=== PATIENT | female | born 1985 | race Two or more races ===

== ENCOUNTER 2018-06-10 02:40 | Inpatient (IN) | payer OTHER ==
[2018-06-10] MEDS ORDERED: METHYLERGONOVINE MALEATE 0.2 MG/1 ML AMP IM PRN (05:16)
[2018-06-10] MEDS ORDERED: BENZOCAINE 28 GM HEMORRHOIDAL OINTMENT TP PRN (05:16)
[2018-06-10] MEDS ORDERED: BENZOCAINE 20% 57 GM BOTTLE TP PRN (05:16)
[2018-06-10] MEDS ORDERED: BISACODYL 10 MG SUPP.RECT RC PRN (05:16)
[2018-06-10] MEDS ORDERED: WITCH HAZEL 50% (TUCKS) 40 PAD/JAR PAD TP PRN (05:16)
--- NOTE | 2018-06-10 05:16 | HP ---
Admitting History and Physical - Admission Chief Complaint: labor pains History of Present Illness: 32 y/o at term comes in full dilated and labor. She was evaluated earlier and returns in labor. 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[employer]: No: Alzheimer's, CVA, Dementia, Migraine, Multiple Sclerosis, Peripheral Neuropathy, Parkinson's, Seizure, Syncope, TIA, Vertigo, Other Cardiovascular: No: AFIB, Aneurysm, Aortic Insufficiency, Aortic Stenosis, CAD, CHF, Deep Vein Thrombosis, HTN, Hyperlipdemia, [place], Mitral Insufficiency, Mitral Stenosis, Murmur, Pulmonary Hypertension, Other Pulmonary: No: Asthma, Bronchitis, Cancer, COPD, O2 Dependent, Pneumonia, Previously Intubated, Pulmonary Embolus, Pulmonary Fibrosis, Sleep Apnea, Other Gastrointestinal: No: Ascites, Cancer, Constipation, Crohn's Disease, Diverticulitis, Diverticulosis, Esophageal Varices, Gastritis, GERD, GI Bleed, Hemorrhoids, Hiatal Hernia, Inflamatory Bowel Disease, Irritable Bowel Disease, Pancreatitis, Peptic Ulcer Disease, Ulcerative Colitis, Other Hepatobiliary: No: Cirrhosis, Cholelithiasis, Cholecystitis, Choledocholithiasis , Hepatitis A, Hepatitis B, Hepatitis C, Other Renal/: No: Renal Failure, Renal Inusuff, BPH, Cancer, Hematuria, Hemodialysis , Neurogenic Bladder, Renal Calculi, UTI, Other Reproductive: No: Ectopic , Endometriosis, Fibroids, PID, Polycystic Ovary Syndrome, Postmenopausal, Other ...: 7 ...Para: 4 Heme/Onc: No: Anemia, B12 Deficiency, Bleeding Disorder, Cancer, Current Chemotherapy, Current Radiation Therapy, Hemochromatosis, Hypercoaguable State, Myeloproliferative Synd, Sickle Cell Disease, Sickle Cell Trait, Thrombocytopenia, Other Infectious Disease: No: AIDS, C-Diff, Herpes Zoster, HIV, MRSA, STD's, Tuberculosis, VREF, Other Psych: No: Addictions, Anxiety, Bipolar, Depression, Panic, Psychosis, Schizophrenia, Other Musculoskeletal: No: Bursitis, Chronic low back pain, Hemiparesis, Hemiplegia, Osteoarthritis, Paraplegia, Other Rheumatology: No: Fibromyalgia, Gout, Lupus, Rheumatoid Arthritis, Sarcoidosis, Vasculitis, Other ENT: No: Allergic Rhinitis, Sinusitis, Other Dermatology: No: Basal Cell, Cellulitis, Eczema, Melanoma, Psoriasis, Squamous Cell, Other - Past Surgical History Past Surgical History: No: None, AAA Repair, AICD, Amputation, Appendectomy, Arthrosocopy, AV Fistula/Graft, Bariatric Surgery, Breast Biopsy, Bypass, CABG, Carotid Endarterectomy, Cataract Removal, Cholecystectomy, Colectomy, Colonoscopy, Colostomy, Craniotomy, , Cystectomy, Hernia Repair, Hysterectomy, Ileal Conduit, Ileosotomy, Joint Replacement, Kidney Transplant, Laminectomy, Liver Transplant, Mastectomy, Nephrectomy, Oopherectomy, Orchiectomy, Permanent Pacemaker, Prostatectomy, Splenectomy, Stent, Thoracotomy , TURP, Tonsillectomy, Tubal Ligation, Upper Endoscopy, Valve Replacement, Vasectomy, Vein Stripping/Ligation - Advance Directives Advance Directives: No: Living Will, Health Care Proxy, DNR, Organ Donor, Tissue Donor, MOLST - Alcohol/Substance Use History of Substance Use: denies: None, Cocaine, Heroin, Marijuana, Prescription , Tranquilizers - Social History Usual Living Arrangement: No: Alone, With Spouse, With Parent, With Significant Other, With Child, Assisted Living, [facility], Other Home Medications - Allergies Allergies/Adverse Reactions: Allergies Allergy/AdvReac Type Severity Reaction Status Date / Time No Known Allergies Allergy Verified 06/02/18 09:04 - Home Medications Home Medications: Ambulatory Orders Pnv No.95/Ferrous Fum/Folic AC [ Formula] 1 each PO DAILY 06/02/18 Review of Systems - Review of Systems Constitutional: reports: No Symptoms Eyes: reports: No Symptoms HENT: reports: No Symptoms Neck: reports: No Symptoms Cardiovascular: reports: No Symptoms Respiratory: reports: No Symptoms Gastrointestinal: reports: No Symptoms Genitourinary: reports: No Symptoms Breasts: reports: No Symptoms Reported Musculoskeletal: reports: No Symptoms Integumentary: reports: No Symptoms Neurological: reports: No Symptoms Endocrine: reports: No Symptoms Hematology/Lymphatic: reports: No Symptoms Physical Examination Vital Signs: Vital Signs Temperature 98.6 F 06/10/18 02:50 Pulse Rate Respiratory Rate 18 06/10/18 02:50 Blood Pressure O2 Sat by Pulse Oximetry (%) Constitutional: Yes: Well Nourished Eyes: Yes: WNL HENT: Yes: WNL Neck: Yes: WNL Cardiovascular: Yes: WNL Respiratory: Yes: WNL Gastrointestinal: Yes: WNL ...Rectal Exam: Yes: WNL Renal/: Yes: WNL Breast(s): Yes: WNL Musculoskeletal: Yes: WNL Extremities: Yes: WNL Integumentary: Yes: WNL Neurological: Yes: WNL, Unresponsive Assessment/Plan aadmit labs expect nsvsd
--- NOTE | 2018-06-10 05:26 | PN ---
Delivery - Delivery Vaginal Delivery: No Problems Type of Anesthesia: None Episiotomy/Laceration: None EBL (cc): 300 Remarks - Remarks Remarks: placenta intact tolerated well
[2018-06-10] MEDS ORDERED: ONDANSETRON 4 MG/2 ML VIAL IM PRN (05:51)
[2018-06-10] MEDS: IBUPROFEN 600 MG TABLET (FP) PO PRN ×5 (05:59→22:00)
[2018-06-10 07:06] VITALS: BMI 28.9
[2018-06-10 08:00] LABS: BASO % 0.2 % (0-2.0); EOS % 0.4 % (0-4.5); HEMOGLOBIN 10.7 GM/dL (10.7-15.3); MCH 33.2 pg (25.7-33.7); MCHC 34.6 g/dl (32.0-36.0); MEAN CELL VOLUME 95.8 fl (80-96); MEAN PLT VOLUME 7.8 fl (7.5-11.1); MONO % 3.7 % (3.8-10.2); NEUT % 83.7 % (42.8-82.8); PLATELET COUNT 289 K/MM3 (134-434); RBC 3.23 M/mm3 (3.60-5.2); RDW 13.8 % (11.6-15.6); WHITE BLOOD COUNT 9.4 K/mm3 (4.0-10.0)
[2018-06-10 08:08] LABS: ANION GAP 7 MMOL/L (8-16); BLOOD UREA NITROGEN 7 mg/dL (7-18); CALCIUM 8.6 mg/dL (8.5-10.1); CHLORIDE 108 mmol/L (98-107); CO2 21 mmol/L (21-32); CREATININE 0.6 mg/dL (0.55-1.3); GLUCOSE,RANDOM 75 mg/dL (74-106); POTASSIUM 4.1 mmol/L (3.5-5.1); SODIUM 137 mmol/L (136-145)
[2018-06-10] MEDS: ACETAMINOPHEN 325 MG TABLET (FP) PO PRN ×4 (09:34→21:59)
[2018-06-11] MEDS: ACETAMINOPHEN 325 MG TABLET (FP) PO PRN ×4 (02:04→19:31)
[2018-06-11] MEDS: IBUPROFEN 600 MG TABLET (FP) PO PRN ×4 (02:05→19:30)
[2018-06-11 08:13] LABS: BASO % 0.5 % (0-2.0); EOS % 1.9 % (0-4.5); HEMATOCRIT 29.8 % (32.4-45.2); HEMOGLOBIN 10.3 GM/dL (10.7-15.3); LYMPH % 36.7 % (8-40); MCH 33.2 pg (25.7-33.7); MCHC 34.5 g/dl (32.0-36.0); MEAN CELL VOLUME 96.1 fl (80-96); MEAN PLT VOLUME 7.8 fl (7.5-11.1); MONO % 6.2 % (3.8-10.2); NEUT % 54.7 % (42.8-82.8); PLATELET COUNT 298 K/MM3 (134-434); RBC 3.11 M/mm3 (3.60-5.2); RDW 13.6 % (11.6-15.6); WHITE BLOOD COUNT 6.1 K/mm3 (4.0-10.0)
--- NOTE | 2018-06-11 08:51 | PN ---
Post Progress Note Post Day: 1 Type of Delivery: Vital Signs: Vital Signs Temperature 98.3 F 06/10/18 21:00 Pulse Rate 69 06/10/18 21:00 Respiratory Rate 20 06/10/18 21:00 Blood Pressure 104/50 L 06/10/18 21:00 O2 Sat by Pulse Oximetry (%) 100 06/10/18 07:30 Uterus: Yes: Fundus below umbilicus Abdomen/GI: Yes: Abdomen soft Lochia: Yes: Rubra Lochia, amount: Small Extremities: Yes: Calves non-tender Perineum: Yes: Intact Activity: Ambulating - Labs Labs: CBC WBC 6.1 K/mm3 (4.0-10.0) 06/11/18 07:30 RBC 3.11 M/mm3 (3.60-5.2) L 06/11/18 07:30 Hgb 10.3 GM/dL (10.7-15.3) L 06/11/18 07:30 Hct 29.8 % (32.4-45.2) L 06/11/18 07:30 MCV 96.1 fl (80-96) H 06/11/18 07:30 MCH 33.2 pg (25.7-33.7) 06/11/18 07:30 MCHC 34.5 g/dl (32.0-36.0) 06/11/18 07:30 RDW 13.6 % (11.6-15.6) 06/11/18 07:30 Plt Count 298 K/MM3 (134-434) 06/11/18 07:30 MPV 7.8 fl (7.5-11.1) 06/11/18 07:30 Absolute Neuts (auto) 3.4 K/mm3 (1.5-8.0) 06/11/18 07:30 Neutrophils % 54.7 % (42.8-82.8) D 06/11/18 07:30 Lymphocytes % 36.7 % (8-40) D 06/11/18 07:30 Monocytes % 6.2 % (3.8-10.2) 06/11/18 07:30 Eosinophils % 1.9 % (0-4.5) D 06/11/18 07:30 Basophils % 0.5 % (0-2.0) 06/11/18 07:30 Nucleated RBC % 0 % (0-0) 06/11/18 07:30 Assessment/Plan 32yo s/p , PPD#1 Routine PP care OOB, ambulate Labs reviewed Anticipate d/c to home by PPD#2 Lucho Fragoso MD
[2018-06-11] MEDS ORDERED: SENNOSIDES/DOCUSATE COMBO (SENNA PLUS) TABLET (UD) PO PRN (22:00)
--- NOTE | 2018-06-12 06:15 | DS ---
Physical Exam-PLEXIGLAS FORMER Vital Signs: Vital Signs Temperature 98.1 F 06/11/18 21:54 Pulse Rate 71 06/11/18 21:54 Respiratory Rate 20 06/11/18 21:54 Blood Pressure 103/60 06/11/18 21:54 O2 Sat by Pulse Oximetry (%) 100 06/10/18 07:30 Constitutional: Yes: Well Nourished, No Distress, Calm Eyes: Yes: WNL, Conjunctiva Clear, EOM Intact HENT: Yes: WNL, Atraumatic, Normocephalic Neck: Yes: WNL, Supple, Trachea Midline Cardiovascular: Yes: WNL, Regular Rate and Rhythm Respiratory: Yes: WNL, Regular, CTA Bilaterally Gastrointestinal: Yes: WNL ...Rectal Exam: Yes: WNL Renal/: Yes: WNL ....Post : Yes: Uterus firm, Uterus non-tender, Slight lochia rubra Breast(s): Yes: WNL Musculoskeletal: Yes: WNL Extremities: Yes: WNL Edema: No Integumentary: Yes: WNL Neurological: Yes: WNL, Alert, Oriented ...Motor Strength: WNL Psychiatric: Yes: WNL, Alert, Oriented Labs: CBC, BMP 06/11/18 07:30 06/10/18 07:20 Delivery - Delivery Vaginal Delivery: No Problems, Spontaneous Type of Anesthesia: None Episiotomy/Laceration: None EBL (cc): 300 Delivery, Single - Stages of Labor Date 1st Stage Initiatied: 06/10/18 Time 1st Stage Initiated: 04:45 Date 2nd Stage Initiated: 06/10/18 Time 2nd Stage Initiated: 04:45 Date of Delivery: 06/10/18 Time of Delivery: 04:55 Time Placenta Delivered: 05:05 Placenta: Yes: Spontaneous - Condition of [employer] 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 Present: No Infant Gender: Female Weight: 6 lb 9 oz Position: Left, OA Total Hours ROM (Hrs/Mins): 0h10m - 5 Minutes Total Score: 9 1 Minute Total Score: 9 - [place] Feeding Plan Initial Plan: Elected not to breastfeed exclusively throughout hospitalization Discharge Summary Reason For Visit: LABOR ADMIT Procedures: Principal: vaginal delivery Hospital Course: no complication Condition: Stable - Instructions Referrals: Katrina Fragoso MD [Staff Physician] - Disposition: HOME - Home Medications Comprehensive Discharge Medication List: Ambulatory Orders Pnv No.95/Ferrous Fum/Folic AC [ Formula] 1 each PO DAILY 06/02/18 Ibuprofen 600 mg PO Q6H PRN #30 tablet 06/11/18
[2018-06-12 11:30] VITALS: BP 106/55; PULSE 53; TEMP 98.2
== END 2018-06-12 09:45 | disposition home or self-care (01) | DRG 560 ==
LOC: JDEL 02:40 → JLDR 04:54 → J3W 08:01
PROVIDERS: ADMIT Obstetrics & Gynecology; ATTEND Obstetrics & Gynecology
PROC: 10E0XZZ Delivery of Products of Conception, External Approach (ICD-10-PCS; principal; 2018-06-10)
DX: O80 Encounter for full-term uncomplicated delivery (principal); Z3A.37 37 weeks gestation of pregnancy; Z37.0 Single live birth
CPT/HCPCS: 36415; 59025; 59409; 80048; 85025; 85730; 86593

== ENCOUNTER 2019-03-22 18:11 | Emergency (ER) | payer OTHER ==
--- NOTE | 2019-03-22 18:35 | PDOC ---
Rapid Medical Evaluation Time Seen by Provider: 03/22/19 18:33 Medical Evaluation: Allergies Allergy/AdvReac Type Severity Reaction Status Date / Time No Known Allergies Allergy Verified 06/02/18 09:04 03/22/19 18:34 CC: fever, chills, rhinnorhea, cough x3 days PE: No focal findings Orders: nothing Patient will proceed to ER for further evaluation. Discharge Disposition - Diagnosis Influenza-like illness - Referrals - Patient Instructions - Post Discharge Activity
[2019-03-22 18:36] VITALS: BP 88/51; PULSE 92; TEMP 99.2; BMI 24.5
--- NOTE | 2019-03-22 19:46 | PDOC ---
History of Present Illness - General Chief Complaint: Cold Symptoms Stated Complaint: Cold Symptoms Time Seen by Provider: 03/22/19 18:33 - History of Present Illness Initial Comments: 03/22/19 19:44 33-year-old female with flulike symptoms x2 days without comorbidities multiple sick contacts with similar symptoms at home no comorbidities. Past History - Past Medical History Allergies/Adverse Reactions: Allergies Allergy/AdvReac Type Severity Reaction Status Date / Time No Known Allergies Allergy Verified 03/22/19 18:37 Home Medications: Ambulatory Orders Pnv No.95/Ferrous Fum/Folic AC [ Formula] 1 each PO DAILY 06/02/18 Ibuprofen 600 mg PO Q6H PRN #30 tablet 06/11/18 Oseltamivir Phosphate [Tamiflu] 75 mg PO BID #10 capsule 03/22/19 Asthma: No Cancer: No Cardiac Disorders: No COPD: No Diabetes: No HTN: No Seizures: No Thyroid Disease: No - Psycho Social/Smoking Cessation Hx Smoking History: Never smoked Have you smoked in the past 12 months: No Hx Alcohol Use: No Drug/Substance Use Hx: No Hx Substance Use Treatment: No Review of Systems - Review of Systems Constitutional: Yes: Chills, Fever, Malaise, Night Sweats HEENTM: Yes: Nose Congestion Respiratory: Yes: Cough *Physical Exam - Vital Signs Last Vital Signs Temp Pulse Resp BP Pulse Ox 99.2 F 92 H 18 88/51 L 98 03/22/19 18:34 03/22/19 18:34 03/22/19 18:34 03/22/19 18:34 03/22/19 18:34 - Physical Exam 03/22/19 19:45 GENERAL: The patient is awake, alert, and fully oriented, in no acute distress. HEAD: Normal with no signs of trauma. EYES: sclera anicteric, conjunctiva clear. ENT: Ears normal tympanic membranes normal oropharynx clear uvula midline NECK: Normal range of motion LUNGS: Breath sounds equal, clear to auscultation bilaterally. No wheezes, and no crackles. HEART: S1 and S2 without murmur, rub or gallop. ABDOMEN: Soft, nontender, normoactive bowel sounds. No guarding, no rebound. No masses. EXTREMITIES: Normal range of motion, no edema. No clubbing or cyanosis. No cords, erythema, or tenderness. NEUROLOGICAL: Cranial nerves II through XII grossly intact. Normal speech, normal gait. PSYCH: Normal mood, normal affect. SKIN: Warm, Dry, normal turgor, no rashes or lesions noted. Medical Decision Making - Medical Decision Making 03/22/19 19:45 Influenza positive at home will treat accordingly Discharge - Discharge Information Problems reviewed: Yes Clinical Impression/Diagnosis: Influenza-like illness Condition: Stable Disposition: HOME - Admission No - Follow up/Referral Referrals: Pietro Phillip MD [Staff Physician] - - Patient Discharge Instructions Additional Instructions: Tamiflu as directed. This will help shorten the course of the flu. Return to the emergency room for worsening symptoms. Without fail follow-up with internal medicine in 2 to 3 days for further evaluation and treatment options. Tylenol Motrin for body aches and fevers as directed. - Post Discharge Activity
== END 2019-03-22 20:18 | disposition home or self-care (01) ==
LOC: JERFT 18:11
DX: J11.1 Influenza due to unidentified influenza virus with other respiratory manifestations (principal)
CPT/HCPCS: 99281-25

== ENCOUNTER 2020-12-03 10:30 | Inpatient (IN) | payer OTHER ==
[2020-12-03] MEDS ORDERED: BETAMET ACET/BETAMET NA PH 30 MG/5 ML VIAL ONE (11:11)
[2020-12-03] MEDS ORDERED: MAGNESIUM SULFATE 20GM/500ML - 20 GM/500 ML INFUS.BAG ONE (11:11)
[2020-12-03] MEDS ORDERED: PENICILLIN G POTASSIUM 20,000,000 (20Mm) UNITS VIAL IVPB ONE (11:26)
[2020-12-03] MEDS ORDERED: BETAMET ACET/BETAMET NA PH 30 MG/5 ML VIAL IM ONE (11:27)
[2020-12-03] MEDS ORDERED: MAGNESIUM SULFATE 20GM/500ML - 20 GM/500 ML INFUS.BAG IVPB SCH (11:30)
[2020-12-03] MEDS ORDERED: MAGNESIUM 4GM/H20 - 4 GM/100 ML IVPB IVPB SCH (11:30)
[2020-12-03] MEDS ORDERED: PENICILLIN G POTASSIUM 5,000,000 UNIT in DEXTROSE 5%-WATER - 250 ML IVPB ONE (12:00)
[2020-12-03] MEDS ORDERED: ELECTROLYTE-148 SOLN 1,000 ML IV SCH (12:00)
[2020-12-03 12:37] VITALS: BMI 30.2
[2020-12-03 13:58] LABS: BASO % 0.3 % (0-2.0); EOS % 0.7 % (0-4.5); HEMATOCRIT 28.8 % (32.4-45.2); HEMOGLOBIN 9.9 GM/dL (10.7-15.3); LYMPH % 18.8 % (8-40); MCH 31.9 pg (25.7-33.7); MCHC 34.4 g/dl (32.0-36.0); MEAN CELL VOLUME 92.8 fl (80-96); MEAN PLT VOLUME 7.5 fl (7.5-11.1); MONO % 3.6 % (3.8-10.2); NEUT % 76.6 % (42.8-82.8); PLATELET COUNT 317 10^3/uL (134-434); RBC 3.11 M/mm3 (3.60-5.2); WHITE BLOOD COUNT 7.9 K/mm3 (4.0-10.0)
[2020-12-03 14:04] LABS: INR 0.89 (0.83-1.09)
[2020-12-03 14:07] LABS: ACTIVATED PTT 25.8 SECONDS (25.2-36.5)
[2020-12-03 14:13] LABS: BLOOD UREA NITROGEN 4.4 mg/dL (7-18); MAGNESIUM 4.6 mg/dL (1.8-2.4)
[2020-12-03 14:16] LABS: CREATININE 0.5 mg/dL (0.55-1.3)
[2020-12-03 14:19] VITALS: BP 115/65; PULSE 70; TEMP 98.2
== END 2020-12-03 15:05 | disposition short-term general hospital (02) | DRG 563 ==
LOC: JDEL 10:30 → JLDR 11:00
PROVIDERS: ADMIT Obstetrics & Gynecology; ATTEND Obstetrics & Gynecology
DX: O60.03 Preterm labor without delivery, third trimester (principal); Z3A.32 32 weeks gestation of pregnancy; O30.043 Twin pregnancy, dichorionic/diamniotic, third trimester
CPT/HCPCS: 36415; 80048; 83735; 85025; 85610; 85730; 86780; 86850; 86900; 86901; 96372; C9803; U0003; U0005

== ENCOUNTER 2020-12-27 10:00 | Inpatient (IN) | payer OTHER ==
[2020-12-27] MEDS ORDERED: AMPICILLIN - 2 GM in SODIUM CHLORIDE 100 ML IVPB ONE (10:39)
[2020-12-27] MEDS ORDERED: AMPICILLIN SODIUM 2 GM VIAL ONE (10:52)
[2020-12-27] MEDS ORDERED: SODIUM CHLORIDE 100 ML IVPB ONE ×3 (10:52→17:44)
[2020-12-27] MEDS: ELECTROLYTE-148 SOLN 1,000 ML IV SCH ×2 (11:00→15:01)
[2020-12-27 11:38] LABS: BASO % 0.5 % (0-2.0); HEMATOCRIT 30.1 % (32.4-45.2); HEMOGLOBIN 10.1 GM/dL (10.7-15.3); LYMPH % 30.9 % (8-40); MCH 31.8 pg (25.7-33.7); MCHC 33.6 g/dl (32.0-36.0); MEAN CELL VOLUME 94.7 fl (80-96); MEAN PLT VOLUME 7.7 fl (7.5-11.1); MONO % 5.5 % (3.8-10.2); NEUT % 62.1 % (42.8-82.8); PLATELET COUNT 331 10^3/uL (134-434); RBC 3.18 M/mm3 (3.60-5.2); WHITE BLOOD COUNT 5.3 K/mm3 (4.0-10.0)
[2020-12-27 11:45] LABS: INR 0.9 (0.83-1.09)
[2020-12-27 11:48] LABS: ACTIVATED PTT 24.5 SECONDS (25.2-36.5)
[2020-12-27 12:00] LABS: BLOOD UREA NITROGEN 8.4 mg/dL (7-18); CALCIUM 8.6 mg/dL (8.5-10.1)
[2020-12-27 12:02] VITALS: BMI 30.2
[2020-12-27 12:03] LABS: CREATININE 0.7 mg/dL (0.55-1.3)
[2020-12-27] MEDS ORDERED: PCA PUMP NR ONE (13:54)
[2020-12-27] MEDS ORDERED: FENTANYL/BUPIVACAINE/NS/PF - PCEA - 50 ML DISP.SYRIN EP ONE (13:54)
[2020-12-27] MEDS ORDERED: OXYTOCIN 30 UNITS in 0.9% NS 30 UNIT/500 ML INFUS.BAG IVPB SCH (14:00)
[2020-12-27] MEDS: FENTANYL/BUPIVACAINE/NS/PF - PCEA - 50 ML DISP.SYRIN EP SCH (14:20)
[2020-12-27] MEDS ORDERED: NALOXONE HCL 0.4 MG/ML VIAL IVPUSH PRN (14:31)
[2020-12-27] MEDS ORDERED: AMPICILLIN SODIUM 1 GM VIAL ONE ×2 (14:38→17:44)
[2020-12-27] MEDS ORDERED: OXYTOCIN 30 UNITS in 0.9% NS 30 UNIT/500 ML INFUS.BAG IVPB ONE (14:43)
[2020-12-27] MEDS: AMPICILLIN - 1 GM in SODIUM CHLORIDE 100 ML IVPB SCH ×2 (14:45→18:14)
[2020-12-27] MEDS ORDERED: BISACODYL 10 MG SUPP.RECT RC PRN (20:01)
[2020-12-27] MEDS ORDERED: BENZOCAINE 20% 57 GM BOTTLE TP PRN (20:01)
[2020-12-27] MEDS ORDERED: METHYLERGONOVINE MALEATE 0.2 MG/1 ML AMP IM PRN (20:01)
[2020-12-27] MEDS ORDERED: WITCH HAZEL 50% (TUCKS) 40 PAD/JAR PAD TP PRN (20:01)
[2020-12-27] MEDS ORDERED: BENZOCAINE 28 GM HEMORRHOIDAL OINTMENT TP PRN (20:01)
[2020-12-27] MEDS ORDERED: OXYTOCIN 20 UNITS in 0.9% NS 20 UNIT/1,000 ML INFUS.BAG IV SCH (20:15)
[2020-12-27 20:29] LABS: CORD BASE EXCESS -5.3 mmol/L (0-2); CORD HCO3 21.5 mmHg (20-29); CORD PCO2 46.5 mmHg (30-78); CORD pH 7.283 (7.14-7.44)
[2020-12-27 20:33] LABS: CORD BASE EXCESS -4.2 mmol/L (0-2); CORD HCO3 23.7 mmHg (20-29); CORD PCO2 54.2 mmHg (30-78); CORD pH 7.259 (7.14-7.44)
[2020-12-27] MEDS ORDERED: OXYTOCIN 20 UNITS in 0.9% NS 20 UNIT/1,000 ML INFUS.BAG IV ONE (20:43)
[2020-12-27] MEDS ORDERED: ACETAMINOPHEN 325 MG TABLET (FP) ONE (20:49)
[2020-12-27] MEDS ORDERED: IBUPROFEN 600 MG TABLET (FP) PO ONE (20:49)
[2020-12-27] MEDS: ACETAMINOPHEN 325 MG TABLET (FP) PO PRN (20:50)
[2020-12-27] MEDS: IBUPROFEN 600 MG TABLET (FP) PO PRN (20:50)
[2020-12-28] MEDS: AMPICILLIN - 1 GM in SODIUM CHLORIDE 100 ML IVPB SCH (00:31)
[2020-12-28] MEDS: IBUPROFEN 600 MG TABLET (FP) PO PRN ×4 (01:30→16:05)
[2020-12-28] MEDS: ACETAMINOPHEN 325 MG TABLET (FP) PO PRN (05:25)
[2020-12-28 09:15] LABS: BASO % 0.2 % (0-2.0); EOS % 0.4 % (0-4.5); HEMATOCRIT 29.4 % (32.4-45.2); HEMOGLOBIN 9.7 GM/dL (10.7-15.3); LYMPH % 20.1 % (8-40); MCH 31.2 pg (25.7-33.7); MCHC 32.8 g/dl (32.0-36.0); MEAN PLT VOLUME 7.5 fl (7.5-11.1); MONO % 6.4 % (3.8-10.2); NEUT % 72.9 % (42.8-82.8); PLATELET COUNT 289 10^3/uL (134-434); WHITE BLOOD COUNT 8.6 K/mm3 (4.0-10.0)
[2020-12-28] MEDS: FERROUS SO4 325 MG TABLET (FP) PO SCH ×2 (09:25→18:37)
[2020-12-28] MEDS: PRENATAL VITAMINS W/ FOLIC ACID TABLET (FP) PO SCH (09:25)
[2020-12-28] MEDS: FENTANYL/BUPIVACAINE/NS/PF - PCEA - 50 ML DISP.SYRIN EP SCH (17:47)
[2020-12-28] MEDS ORDERED: SENNOSIDES/DOCUSATE COMBO (SENNA PLUS) TABLET (UD) PO PRN (22:00)
[2020-12-29] MEDS: IBUPROFEN 600 MG TABLET (FP) PO PRN ×2 (04:46→09:36)
[2020-12-29] MEDS: PRENATAL VITAMINS W/ FOLIC ACID TABLET (FP) PO SCH (09:35)
[2020-12-29] MEDS: FERROUS SO4 325 MG TABLET (FP) PO SCH (09:35)
[2020-12-29 10:15] VITALS: PULSE 63; TEMP 98.3
[2020-12-29 11:41] VITALS: BP 102/54
== END 2020-12-29 11:00 | disposition home or self-care (01) | DRG 560 ==
LOC: JLDR 10:00 → J3W 22:33
PROVIDERS: ADMIT Obstetrics & Gynecology; ATTEND Obstetrics & Gynecology
PROC: 10E0XZZ Delivery of Products of Conception, External Approach (ICD-10-PCS; principal; 2020-12-27)
DX: O30.043 Twin pregnancy, dichorionic/diamniotic, third trimester (principal); O60.14X0 Preterm labor third trimester with preterm delivery third trimester, not applicable or unspecified; O32.1XX0 Maternal care for breech presentation, not applicable or unspecified; Z3A.36 36 weeks gestation of pregnancy; Z37.2 Twins, both liveborn
CPT/HCPCS: 36415; 36600; 80048; 82803; 85025; 85610; 85730; 86780; 86850; 86900; 86901; 88307-TC; C9803; U0003; U0005